=== PATIENT | female | born 1955 | race African-American/Black ===

== ENCOUNTER 2017-07-31 08:29 | Emergency (ER) | payer BC ==
--- NOTE | 2017-07-31 09:28 | RAD ---
2 VIEWS CHEST: Date: 07/31/17 COMPARISON: 05/15/11. HISTORY: Right-sided chest pain while at work. FINDINGS: Two views of the chest show normal sized cardiomediastinal silhouette with atherosclerotic calcificat ions in the aorta. There is no evidence of consolidation or pleural effusion. There is a small calcif ied granuloma projecting over the right lung. IMPRESSION: No evidence of acute cardiopulmonary disease. POS: [facility]
[2017-07-31] MEDS ORDERED: Ketorolac Tromethamine 30 MG/ML VIAL ONE (09:38)
== END 2017-07-31 10:03 | disposition home or self-care (01) ==
LOC: ERS 08:29
DX: M62.838 Other muscle spasm (principal); R07.81 Pleurodynia; F17.210 Nicotine dependence, cigarettes, uncomplicated; I10 Essential (primary) hypertension; N28.1 Cyst of kidney, acquired; Z87.442 Personal history of urinary calculi
CPT/HCPCS: 71046; 96374; J1885